=== PATIENT | female | born 1940 | race Caucasian/White ===

== ENCOUNTER → 2024-04-20 12:27 | Outpatient (BNVA) | payer MEDICARE, OTHER, SELFPAY | PROVIDERS: Visit Provider Internal Medicine | DX: E05.90 Thyrotoxicosis, unspecified without thyrotoxic crisis or storm (principal); F41.9 Anxiety disorder, unspecified; R25.1 Tremor, unspecified | CPT/HCPCS: 36415; 83516; 84439; 84443; 84480; 86376; 86800; 99204 ==

== ENCOUNTER → 2024-06-15 12:43 | Outpatient (BNVA) | payer MEDICARE, OTHER, SELFPAY | PROVIDERS: Visit Provider Internal Medicine | DX: E05.90 Thyrotoxicosis, unspecified without thyrotoxic crisis or storm (principal); F41.9 Anxiety disorder, unspecified; R25.1 Tremor, unspecified; I10 Essential (primary) hypertension | CPT/HCPCS: 36415; 84439; 84443; 84480; 99214 ==

== ENCOUNTER → 2025-01-11 11:09 | Outpatient (BNVA) | payer MEDICARE, OTHER, SELFPAY | PROVIDERS: PCP Internal Medicine; Visit Provider Internal Medicine | DX: E05.90 Thyrotoxicosis, unspecified without thyrotoxic crisis or storm (principal); I10 Essential (primary) hypertension | CPT/HCPCS: 99214 ==